=== PATIENT | female | born 1955 | race Hispanic/Latino ===

== ENCOUNTER 2021-05-31 13:02 | Outpatient (CLI) | payer MEDICARE, OTHER | END 2021-05-31 13:03 | disposition home or self-care (01) | LOC: CSHMAMMO 13:02 | PROVIDERS: ATTEND Internal Medicine | DX: Z12.31 Encounter for screening mammogram for malignant neoplasm of breast (principal); Z98.890 Other specified postprocedural states | CPT/HCPCS: 77063; 77067 ==